=== PATIENT | male | born 1940 | race Caucasian/White ===

== ENCOUNTER 2021-05-19 18:15 | Observation (INO) ==
[2021-05-19] MEDS ORDERED: ONDANSETRON 4 MG/2 ML VIAL IV STA (19:37)
[2021-05-19] MEDS ORDERED: PROMETHAZINE 25 MG/1 ML VIAL IM STA (19:37)
[2021-05-19 20:20] LABS: Bilirubin,Urine Negative (Negative); Blood, Urine Negative (Negative); Glucose,Urine (UA) Negative (Negative); Ketones,Urine Negative (Negative); Mucus,Urine Occasional /LPF (Occasional); Nitrite,Urine Negative (Negative); Protein,Urine 100 MG/DL; RBC,Urine 1 /HPF (0-4); Urine Appearance CLEAR (Clear); Urine Color Yellow (Yellow); Urine Specific Gravity 1.015 (1.001-1.035); Urine Urobilinogen < 2.0 EU/DL (0.2-1.0)
[2021-05-19 20:29] LABS: Basophils % 0.1 % (0.0-0.8); Hematocrit 45.6 VOL% (42.0-52.0); Hemoglobin 14.1 GM/DL (14.0-18.0); Immature Granulocytes % 0.4 %; Immature Granulocytes Absolute 0.05 #; Lymphocytes # 1.8 10*3/uL (1.4-4.0); Lymphocytes % 15.3 % (21.2-54.2); Mean Corpuscular HGB Conc 30.9 GM/DL (32-36); Monocytes % 2.7 % (1.7-12.7); Neutrophils % 81.5 % (38.7-73.9); Platelet Count 214 T/CUMM (130-400); Red Cell Distribution Width 18.2 % (9.3-17.3); White Blood Count 11.7 T/CUMM (4-12)
[2021-05-19 21:00] LABS: Albumin 3.7 G/DL (3.4-5.0); Bilirubin,Total 0.9 MG/DL (0.20-1.00); Calcium 9.9 MG/DL (8.5-10.1); Osmolality,Calculated 285.8 MOS/KG (273-304); Potassium 5.3 MMOL/L (3.5-5.1); Total Protein 7.9 G/DL (6.4-8.2)
[2021-05-19] MEDS ORDERED: ACETAMINOPHEN 325 MG TABLET PO PRN (21:23)
[2021-05-19] MEDS ORDERED: PROMETHAZINE 25 MG/1 ML VIAL IM PRN (21:23)
[2021-05-19] MEDS ORDERED: ONDANSETRON 4 MG/2 ML VIAL IV PRN (21:23)
[2021-05-20] MEDS: DOCUSATE SODIUM 100 MG CAPSULE PO SCH ×2 (08:18→20:56)
[2021-05-20] MEDS: PANTOPRAZOLE 40 MG TABLET PO SCH (08:18)
[2021-05-20] MEDS: SODIUM CHLORIDE 0.9% 1,000 ML IV SCH ×2 (08:22→17:39)
[2021-05-20] MEDS ORDERED: GLUCAGON 1 MG VIAL IM PRN (08:35)
[2021-05-20] MEDS ORDERED: DEXTROSE 50% 25 GM/50 ML VIAL IV PRN ×2 (08:35→08:36)
[2021-05-20 09:21] LABS: Basophils % 0.2 % (0.0-0.8); Eosinophils % 0.2 % (0.00-10.9); Hematocrit 43.9 VOL% (42.0-52.0); Immature Granulocytes % 0.3 %; Immature Granulocytes Absolute 0.03 #; Lymphocytes # 2.4 10*3/uL (1.4-4.0); Lymphocytes % 20.7 % (21.2-54.2); Mean Corpuscular HGB Conc 29.6 GM/DL (32-36); Mean Corpuscular Volume 80.8 FL (87-102); Mean Platelet Volume 10.5 FL (9.6-12.0); Monocytes % 8.4 % (1.7-12.7); Neutrophils % 70.2 % (38.7-73.9); Platelet Count 225 T/CUMM (130-400); Red Blood Count 5.43 MC/CUMM (3.8-5.5); Red Cell Distribution Width 18.2 % (9.3-17.3); White Blood Count 11.5 T/CUMM (4-12)
[2021-05-20 09:29] LABS: Calcium 9.8 MG/DL (8.5-10.1); Osmolality,Calculated 284.5 MOS/KG (273-304)
[2021-05-20] MEDS: APIXABAN 5 MG TABLET PO SCH ×2 (09:53→20:56)
[2021-05-20] MEDS: INSULIN LISPRO 100 UNIT/ML SUBCUT SCH (17:39)
[2021-05-20] MEDS: SIMVASTATIN 20 MG TABLET PO SCH (20:56)
[2021-05-21 04:52] LABS: Basophils # 0.1 10*3/uL (0.0-0.2); Basophils % 0.5 % (0.0-0.8); Eosinophils # 0.2 10*3/uL (0.0-0.87); Eosinophils % 1.9 % (0.00-10.9); Hemoglobin 11.8 GM/DL (14.0-18.0); Immature Granulocytes % 0.3 %; Immature Granulocytes Absolute 0.03 #; Lymphocytes # 2.2 10*3/uL (1.4-4.0); Lymphocytes % 24.2 % (21.2-54.2); Mean Corpuscular HGB Conc 30.3 GM/DL (32-36); Mean Corpuscular Volume 81.3 FL (87-102); Mean Platelet Volume 10.6 FL (9.6-12.0); Neutrophils % 64.1 % (38.7-73.9); Platelet Count 202 T/CUMM (130-400); Red Cell Distribution Width 17.6 % (9.3-17.3); White Blood Count 9.2 T/CUMM (4-12)
[2021-05-21 05:15] LABS: Calcium 9.2 MG/DL (8.5-10.1); Osmolality,Calculated 290.3 MOS/KG (273-304); Potassium 3.9 MMOL/L (3.5-5.1)
[2021-05-21] MEDS: APIXABAN 5 MG TABLET PO SCH ×2 (08:03→20:53)
[2021-05-21] MEDS: PANTOPRAZOLE 40 MG TABLET PO SCH (08:03)
[2021-05-21] MEDS: DOCUSATE SODIUM 100 MG CAPSULE PO SCH ×2 (08:03→20:53)
[2021-05-21] MEDS: INSULIN LISPRO 100 UNIT/ML SUBCUT SCH ×2 (08:04→16:05)
[2021-05-21] MEDS: SODIUM CHLORIDE 0.9% 1,000 ML IV SCH ×2 (08:05→17:00)
[2021-05-21] MEDS: SIMVASTATIN 20 MG TABLET PO SCH (20:52)
[2021-05-22] MEDS: SODIUM CHLORIDE 0.9% 1,000 ML IV SCH (02:40)
[2021-05-22] MEDS: INSULIN LISPRO 100 UNIT/ML SUBCUT SCH (07:51)
[2021-05-22] MEDS: DOCUSATE SODIUM 100 MG CAPSULE PO SCH (08:00)
[2021-05-22] MEDS: PANTOPRAZOLE 40 MG TABLET PO SCH (08:00)
[2021-05-22] MEDS: APIXABAN 5 MG TABLET PO SCH (08:00)
[2021-05-22 12:46] VITALS: BP 173/78
== END 2021-05-22 15:03 | disposition home or self-care (01) ==
LOC: N.EDINP 18:15 → N.ED 18:15 → N.3E 22:58
PROVIDERS: ADMIT Internal Medicine; ATTEND Internal Medicine